=== PATIENT | female | born 2005 | race Hispanic/Latino ===

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

== ENCOUNTER 2023-01-07 17:25 | Emergency (ER) | payer OTHER, MEDICAID ==
[~2023-01-07] VITALS: Ht 152.4 cm; Wt 49.4 kg
[~2023-01-07 17:25] MED LIST: ONDA4TAB10 PO
[2023-01-07] MEDS ORDERED: ACETAMINOPHEN 500 MG TABLET PO ONE (18:00)
[2023-01-07 19:41] LABS: APPEARANCE,URINE CLEAR (CLEAR); BILIRUBIN,URINE NEGATIVE (NEGATIVE); COLOR,URINE YELLOW (YELLOW); GLUCOSE, URINE (UA) NEGATIVE (NEGATIVE); KETONES,URINE 150 mg/dL (NEGATIVE); LEUKOCYTE ESTERASE ,URINE 75 Leu/uL (NEGATIVE); NITRATE,URINE NEGATIVE (NEGATIVE); OCCULT BLOOD,URINE NEGATIVE (NEGATIVE); PROTEIN,URINE 50 mg/dL (NEGATIVE); UROBILINOGEN,URINE 0.2 mg/dL (0.2-1.0)
[2023-01-07 19:45] LABS: HCG,QUALITATIVE URINE NEGATIVE (NEGATIVE)
[2023-01-07 20:12] LABS: BACTERIA,URINE FEW /HPF (None Seen); MUCUS,URINE FEW LPF (None Seen); SQUAMOUS EPITHELIAL CELL,UR MOD /HPF (0-2); YEAST,URINE BUDDING RARE /HPF (None Seen)
[2023-01-07] MEDS ORDERED: IBUP-14 PO (20:51)
[2023-01-07 21:26] VITALS: BP 136/78
[2023-01-11] MEDS ORDERED: CYCL5TAB PO (19:47)
[2023-01-11] MEDS ORDERED: CEPH500C2 PO (19:47)
[2023-01-11] MEDS ORDERED: MECL-160 PO (19:47)
[2023-01-11] MEDS ORDERED: ONDA-104 PO (19:47)
== END 2023-01-07 21:28 | disposition home or self-care (01) ==
LOC: EDH 17:25
DX: M54.2 Cervicalgia (principal); R51.9 Headache, unspecified; V49.49XA Driver injured in collision with other motor vehicles in traffic accident, initial encounter; Y93.89 Activity, other specified; Y92.89 Other specified places as the place of occurrence of the external cause; Y99.8 Other external cause status
CPT/HCPCS: 70450; 72125; 81001; 81025; 87088